=== PATIENT | male | born 1990 | race Two or more races ===

== ENCOUNTER 2016-06-10 17:50 | Emergency (ER) | payer SELFPAY ==
[~2016-06-10] VITALS: Ht 188 cm; Wt 81.6 kg
[2016-06-10] MEDS ORDERED: DEXAMETHASONE SOD PHOSPHATE 10 MG/ML VIAL IM ONE (18:00)
[2016-06-10] MEDS ORDERED: diphenhydrAMINE HCL 50 MG CAPSULE PO ONE (18:00)
[2016-06-10] MEDS ORDERED: FAMOTIDINE (20 MG) 20 MG TABLET PO ONE (18:00)
[2016-06-10] MEDS ORDERED: FAMOTIDINE (20 MG) 20 MG TABLET ONE (18:02)
[2016-06-10] MEDS ORDERED: diphenhydrAMINE HCL 50 MG CAPSULE ONE (18:02)
[2016-06-10] MEDS ORDERED: DEXAMETHASONE SOD PHOSPHATE 10 MG/ML VIAL ONE (18:02)
[2016-06-10] MEDS ORDERED: ONDANSETRON 4 MG TAB.RAPDIS SL ONE (18:30)
[2016-06-10] MEDS ORDERED: ONDANSETRON 4 MG TAB.RAPDIS ONE (18:31)
[2016-06-10 20:02] VITALS: BP 120/76
== END 2016-06-10 20:03 | disposition home or self-care (01) ==
LOC: ER 17:52
DX: T78.40XA Allergy, unspecified, initial encounter (principal); L50.9 Urticaria, unspecified; Z88.0 Allergy status to penicillin; Y92.89 Other specified places as the place of occurrence of the external cause; Y93.89 Activity, other specified; Y99.8 Other external cause status
CPT/HCPCS: 96372; 99284; A4606; J1100; Q0162; Q0163; Z7610

== ENCOUNTER 2016-06-11 21:51 | Emergency (ER) | payer SELFPAY ==
[~2016-06-11] VITALS: Ht 185.4 cm; Wt 77.1 kg
[2016-06-11 21:55] VITALS: BP 118/76
[2016-06-11] MEDS ORDERED: diphenhydrAMINE HCL 25 MG CAPSULE ONE (22:26)
[2016-06-11] MEDS ORDERED: FAMOTIDINE (20 MG) 20 MG TABLET ONE (22:27)
[2016-06-11] MEDS ORDERED: DEXAMETHASONE SOD PHOSPHATE 10 MG/ML VIAL ONE (22:27)
[2016-06-11] MEDS ORDERED: DEXAMETHASONE SOD PHOSPHATE 10 MG/ML VIAL IV ONE (22:30)
[2016-06-11] MEDS ORDERED: diphenhydrAMINE HCL 25 MG CAPSULE PO ONE (22:30)
[2016-06-11] MEDS ORDERED: FAMOTIDINE (20 MG) 20 MG TABLET PO ONE (22:30)
== END 2016-06-11 23:09 | disposition home or self-care (01) ==
LOC: ER 21:53
DX: L50.9 Urticaria, unspecified (principal); Z88.0 Allergy status to penicillin
CPT/HCPCS: 99284; A4606; J1100; Q0163; Z7610

== ENCOUNTER 2016-06-12 14:01 | Emergency (ER) | payer SELFPAY ==
[~2016-06-12] VITALS: Ht 185.4 cm; Wt 77.1 kg
[2016-06-12 14:01] VITALS: BP 135/96
== END 2016-06-12 15:25 | disposition home or self-care (01) ==
LOC: ER 14:05
DX: L50.9 Urticaria, unspecified (principal); F41.9 Anxiety disorder, unspecified; Z88.0 Allergy status to penicillin
CPT/HCPCS: 99281; A4606; Z7610; Z7502

== ENCOUNTER 2017-04-30 21:29 | Emergency (ER) | payer MEDICAID ==
[~2017-04-30] VITALS: Ht 185.4 cm; Wt 74.8 kg
--- NOTE | 2017-04-30 21:55 | NUR ---
BB SELF FROM HOME WITH C/C OF PRESSURE LIKE PAIN IN SINUSES, WITH PAIN LEVEL 6/10. PT ALSO C/O SHARP CHEST PAIN WITH INSPIRATION THAT IS NONE RADIATING. RESP EVEN AND UNLABORED WITH CLEAR LUNG SOUNDS. SKIN WARM AND PINK. 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 PT ON MONITOR WITH CONTINOUS PULSE OX. VSS NAD NOTED. PT STATED TO SMOKING WEED ON A DAILY BASIS.
--- NOTE | 2017-04-30 23:30 | NUR ---
PT IS ON THE MONITOR AND CONTINOUS PULSE OX. JADA SOLOMON IS AT THE BEDSIDE FOR RE-EVAL.
[2017-04-30] MEDS ORDERED: ONDANSETRON HCL/PF 4 MG/2 ML VIAL ONE (23:40)
[2017-04-30] MEDS ORDERED: PANTOPRAZOLE 40 MG VIAL ONE (23:40)
[2017-04-30 23:56] LABS: BASOPHILS % (AUTO) 0.5 % (0.0-2.0); EOSINOPHILS # (AUTO) 0.1 /CMM (0.0-0.7); EOSINOPHILS % (AUTO) 1.1 % (0.0-6.0); HEMATOCRIT 43 % (39-51); HEMOGLOBIN 14.9 g/dL (13.5-17.5); LYMPHOCYTES # (AUTO) 2.5 /CMM (0.8-4.8); LYMPHOCYTES % (AUTO) 33.5 % (20.0-44.0); MEAN CORPUSCULAR HEMOGLOBIN 29 PG (26.0-33.0); MEAN CORPUSCULAR HGB CONC 35 g/dl (31.0-36.0); MEAN CORPUSCULAR VOLUME 85 fL (80-96); MONOCYTES # (AUTO) 0.5 /CMM (0.1-1.30); MONOCYTES % (AUTO) 6.8 % (2.0-12.0); NEUTROPHILS # (AUTO) 4.3 /CMM (1.8-8.9); NEUTROPHILS % (AUTO) 58.1 % (43.0-81.0); PLATELET COUNT (AUTO) 249 /CMM (150-450); RDW COEFFICIENT OF VARIATION 11.9 (11.5-15.0); RED BLOOD CELL COUNT(AUTO) 5.09 MIL/uL (4.5-6.0); WHITE BLOOD COUNT (AUTO) 7.4 K/uL (4.3-11.0)
[2017-05-01] MEDS ORDERED: ONDANSETRON HCL/PF 4 MG/2 ML VIAL IVP ONE
[2017-05-01] MEDS ORDERED: IV NS 0.9% 1,000 ML BAG IV ONE
[2017-05-01] MEDS ORDERED: PANTOPRAZOLE 40 MG VIAL IV ONE
[2017-05-01 00:08] LABS: CALCIUM, SERUM 9.7 mg/dL (8.5-10.1); CREATININE 1.1 mg/dL (0.6-1.3); POTASSIUM 3.7 mmol/L (3.5-5.1)
[2017-05-01 00:12] LABS: INR 0.98 (0.87-1.13)
[2017-05-01 00:14] LABS: BILIRUBIN,DIRECT 0.1 mg/dL (0.0-0.2); BILIRUBIN,TOTAL 0.5 mg/dL (0.2-1.0); TOTAL PROTEIN, SERUM 7.2 g/dL (6.4-8.2)
--- NOTE | 2017-05-01 00:33 | NUR ---
PT REC'D MEDICATION ORDERED.
[2017-05-01] MEDS ORDERED: ONDANSETRON HCL/PF 4 MG/2 ML VIAL ONE (00:34)
[2017-05-01] MEDS ORDERED: ONDANSETRON HCL/PF 4 MG/2 ML VIAL IV ONE (01:00)
[2017-05-01 01:37] LABS: APPEARANCE,URINE CLEAR (CLEAR); BILIRUBIN,URINE NEGATIVE (NEGATIVE); BLOOD, URINE NEGATIVE Ery/uL (NEGATIVE); COLOR,URINE YELLOW (YELLOW); KETONES,URINE NEGATIVE (NEGATIVE); LEUKOCYTE ESTERASE ,URINE NEGATIVE (NEGATIVE); NITRITE, URINE NEGATIVE (NEGATIVE); PH,URINE 6.5 (5.0-8.0); PROTEIN,URINE NEGATIVE (NEGATIVE); UGLUCOSE NEGATIVE (NEGATIVE); UROBILINOGEN,URINE 0.2 EU/dL (0.2)
--- NOTE | 2017-05-01 02:00 | NUR ---
Patient discharged to home in stable condition. Pateint ambulated with steady gait. Written and verbal after care instructions given. Patient verbalizes understanding of instruction. IV removed. Catheter intact and site benign. Pressure and 4x4 applied to site. No bleeding noted.
[2017-05-01 02:03] VITALS: BP 124/70
== END 2017-05-01 02:04 | disposition home or self-care (01) ==
LOC: ER 21:34
DX: R11.2 Nausea with vomiting, unspecified (principal); Z88.0 Allergy status to penicillin
CPT/HCPCS: 36415; 80048-TC; 80076-TC; 81000-TC; 83690-TC; 85025-TC; 85730-TC; 86850-TC; A4606; C9113; J2405; J7030; Z7610

== ENCOUNTER 2023-12-11 20:32 | Emergency (ER) | payer MEDICAID ==
[~2023-12-11] VITALS: Ht 188 cm; Wt 86.2 kg
[2023-12-11 22:46] VITALS: BP 108/66; TEMP 98.4; O2SAT 99
[2023-12-11] MEDS ORDERED: CLOT15CR35 TP (23:01)
[2023-12-11] MEDS ORDERED: FLUO30CR11 TP (23:01)
== END 2023-12-11 23:51 | disposition home or self-care (01) ==
LOC: ER 20:35
DX: B35.6 Tinea cruris (principal); Z88.0 Allergy status to penicillin

== ENCOUNTER 2023-12-27 16:40 | Emergency (ER) | payer MEDICAID ==
[~2023-12-27] VITALS: Ht 188 cm; Wt 81.6 kg
[~2023-12-27 16:40] MED LIST: CLOT15CR35 TP; FLUO30CR11 TP
[2023-12-27 16:57] VITALS: TEMP 97.9
[2023-12-27] MEDS ORDERED: KETOROLAC TROMETHAMINE INJ 60 MG/2 ML VIAL IM ONE (17:30)
[2023-12-27] MEDS: KETOROLAC TROMETHAMINE INJ 60 MG/2 ML VIAL IM ONE (17:33)
[2023-12-27] MEDS ORDERED: TRAM50TA2 PO (18:16)
[2023-12-27 18:48] VITALS: BP 122/79; O2SAT 99
== END 2023-12-27 18:48 | disposition home or self-care (01) ==
LOC: ER 16:47
DX: M54.50 Low back pain, unspecified (principal); Z79.899 Other long term (current) drug therapy; Z88.0 Allergy status to penicillin
CPT/HCPCS: 72128-TC; 72131-TC; J1885